=== PATIENT | male | born 1945 | race American Indian/Alaskan Native ===

== ENCOUNTER 2021-01-11 07:37 | Day surgery (SDC) | payer MEDICARE ==
[2021-01-11 17:06] VITALS: BP 124/76
== END 2021-01-11 17:30 | disposition home or self-care (01) ==
LOC: CATHLABREC 07:37
PROVIDERS: ATTEND Radiology Diagnostic Radiology
DX: I82.402 Acute embolism and thrombosis of unspecified deep veins of left lower extremity (principal); I87.1 Compression of vein; I70.213 Atherosclerosis of native arteries of extremities with intermittent claudication, bilateral legs; I10 Essential (primary) hypertension; Z79.899 Other long term (current) drug therapy; Z98.890 Other specified postprocedural states
CPT/HCPCS: 36415; 37187; 37191; 37248; 37249; 75820; 76937; 80048; 85025; 85610; 85730; C1725; C1757; C1769; C1880; C1887; C1894; J0690; J1644; J2250; J3010; J7040; Q9967